=== PATIENT | male | born 1940 | race Caucasian/White ===

== ENCOUNTER → 2016-12-13 | Outpatient (CLI) | payer MEDICARE | END | disposition home or self-care (01) | LOC: PCVCCLINIC 15:30 | PROVIDERS: ATTEND Internal Medicine Cardiovascular Disease | DX: I35.0 Nonrheumatic aortic (valve) stenosis (principal); I10 Essential (primary) hypertension; E78.00 Pure hypercholesterolemia, unspecified; I25.10 Atherosclerotic heart disease of native coronary artery without angina pectoris; E11.9 Type 2 diabetes mellitus without complications; I44.7 Left bundle-branch block, unspecified; I44.0 Atrioventricular block, first degree; K21.9 Gastro-esophageal reflux disease without esophagitis; Z95.4 Presence of other heart-valve replacement; Z95.1 Presence of aortocoronary bypass graft; Z79.84 Long term (current) use of oral hypoglycemic drugs; Z87.891 Personal history of nicotine dependence; Z88.8 Allergy status to other drugs, medicaments and biological substances | CPT/HCPCS: 93005; G0463 ==

== ENCOUNTER → 2017-04-23 | Outpatient (CLI) | payer MEDICARE ==
--- NOTE | 2017-04-23 16:40 | PCVCIMAG ---
APPROVED REPORT Study performed: 04/23/2017 13:29:20 EXAM: Comprehensive 2D, Doppler, and color-flow Echocardiogram Patient Location: Echo lab Status: routine BSA: 1.78 HR: 56 bpmBP: 142/72 mmHg Rhythm: NSR Risk Factors: Cardiac Risk Factors: HTN Indications Aortic Valve Disease Cardiomyopathy Hypertension/HDD #25 [facility] AVR. 2D Dimensions IVSd: 10.28 (7-11mm)LVOT Diam: 25.19 (18-24mm) LVDd: 54.13 mm PWd: 10.49 (7-11mm)Ascending Ao: 29.16 (22-36mm) LVDs: 37.68 (25-40mm) Left Atrium: 32.99 (27-40mm) Aortic Root: 26.26 mm LV Single Plane 4CH: 49.60 % LV Single Plane 2CH: 41.32 %Song's LVEF: 45.46 % Biplane EF: 45.8 % Volumes Left Atrial Volume (Systole) Single Plane 4CH: 37.54 mLSingle Plane 2CH: 37.79 mL Biplane LA Volume: 40.00 mLLA ESV Index: 22.00 mL/m2 Aortic Valve AoV Peak Kevin.: 1.81 m/s AO Peak Gr.: 14.32 mmHgLVOT Max P.39 mmHg AO Mean Gr.: 6.05 mmHg AO V2 Mean: 1.15 m/sLVOT Max V: 0.92 m/s AO V2 VTI: 36.28 cm BLAIR Vmax: 2.54 cm2 AI Vmax: 4.24 m/s AI [place]: 3.13 m/s2 AI PHT: 392.86 ms Mitral Valve E/A Ratio: 1.2 MV Decel. Time: 145.77 ms MV E Max Kevin.: 0.99 m/s MV A Kevin.: 0.82 m/s IVRT: 128.03 ms TDI E/Lateral E': 5.50E/Medial E': 24.75 Medial E' Kevin.: 0.04 m/s Lateral E' Kevin.: 0.18 m/s Pulmonary Valve PV Peak Kevin.: 1.07 m/sPV Peak Gr.: 4.56 mmHg Pulmonary Vein P Vein S: 0.48 m/sP Vein A: 0.18 m/s P Vein D: 0.43 m/sP Vein A Dur.: 76.1 msec P Vein S/D Ratio: 1.12 Tricuspid Valve TR Peak Kevin.: 2.75 m/s TR Peak Gr.: 30.21 mmHg TV Vmax: 0.78 m/sPA Pressure: 37.00 mmHg Left Ventricle The left ventricle is normal size. Global mild hypokinesis. There is normal left ventricular wall thickness. The left ventricular ejection fraction is within the normal range. LVEF is 45-50%. The left ventricular diastolic function is normal. Right Ventricle The right ventricle is normal size. The right ventricular systolic function is normal. Atria The left atrium size is normal. The right atrium size is normal. Aortic Valve #25 [facility] AVR. Peak gradient is 13mmhg. Mean gradient is 6mmhg. BLAIR is 2.5cm2. Mild aortic regurgitation. There is no aortic valvular stenosis. Mitral Valve The mitral valve is normal in structure. Trace mitral regurgitation. No evidence of mitral valve stenosis. Tricuspid Valve The tricuspid valve is normal in structure. Trace tricuspid regurgitation. Pulmonary artery pressure is 37mmhg. Pulmonic Valve The pulmonary valve is normal in structure. There is no pulmonic valvular regurgitation. Great Vessels The aortic root is normal in size. The ascending aorta is normal in size. IVC is normal in size and collapses with >50% inspiration Pericardium There is no pericardial effusion. There is no pleural effusion. <Conclusion> The left ventricle is normal size. LVEF is 45-50%. The left ventricular diastolic function is normal. The right ventricle is normal size. The left atrium size is normal. #25 [facility] AVR. Peak gradient is 13mmhg. Mean gradient is 6mmhg. BLAIR is 2.5cm2. There is no aortic valvular stenosis. Trace mitral regurgitation. Trace tricuspid regurgitation. Pulmonary artery pressure is 37mmhg. There is no pericardial effusion.
== END | disposition home or self-care (01) ==
LOC: PCVCIMAG 13:21
PROVIDERS: ATTEND Internal Medicine Cardiovascular Disease
DX: I25.10 Atherosclerotic heart disease of native coronary artery without angina pectoris (principal); I10 Essential (primary) hypertension; I42.9 Cardiomyopathy, unspecified; E78.5 Hyperlipidemia, unspecified; E11.9 Type 2 diabetes mellitus without complications; E78.00 Pure hypercholesterolemia, unspecified; I35.0 Nonrheumatic aortic (valve) stenosis; R94.31 Abnormal electrocardiogram [ECG] [EKG]; I44.7 Left bundle-branch block, unspecified; Z95.2 Presence of prosthetic heart valve; Z87.891 Personal history of nicotine dependence; Z79.899 Other long term (current) drug therapy
CPT/HCPCS: 36415; 80061; 85610; 93005; 93306; G0463

== ENCOUNTER → 2017-12-18 | Outpatient (CLI) | payer MEDICARE | END | disposition home or self-care (01) | LOC: PCVCCLINIC 12:53 | DX: I25.10 Atherosclerotic heart disease of native coronary artery without angina pectoris (principal); I10 Essential (primary) hypertension; E11.9 Type 2 diabetes mellitus without complications; I35.0 Nonrheumatic aortic (valve) stenosis; E78.00 Pure hypercholesterolemia, unspecified; D68.59 Other primary thrombophilia; Z95.2 Presence of prosthetic heart valve | CPT/HCPCS: 93005; G0463 ==

== ENCOUNTER → 2018-03-27 | Outpatient (CLI) | payer MEDICARE ==
[~2018-03-27] MED LIST: REGADENOSON 0.4 MG/5 ML DISP.SYRIN. IV ONE
--- NOTE | 2018-03-27 12:38 | PCVCIMAG ---
APPROVED REPORT Study performed: 03/27/2018 08:46:12 EXAM: Comprehensive 2D, Doppler, and color-flow Echocardiogram Patient Location: Echo lab Status: routine BSA: 1.82 HR: 72 bpmBP: 150/80 mmHg Rhythm: NSR Other Information Study Quality: Good Risk Factors: Cardiac Risk Factors: HTN, Hyperlipidemia, DM Indications Aortic Valve Disease Hypertension/HDD #25 [facility] [place] AVR 2D Dimensions IVSd: 10.99 (7-11mm)LVOT Diam: 26.57 (18-24mm) LVDd: 57.91 mm PWd: 10.01 (7-11mm)Ascending Ao: 36.10 (22-36mm) LVDs: 53.42 (25-40mm) Left Atrium: 43.48 (27-40mm) Aortic Root: 31.05 mm LV Single Plane 4CH: 39.31 % LV Single Plane 2CH: 39.06 % Biplane EF: 39.0 % Volumes Left Atrial Volume (Systole) Single Plane 4CH: 71.45 mLSingle Plane 2CH: 73.11 mL LA ESV Index: 41.00 mL/m2 Aortic Valve AoV Peak Kevin.: 1.84 m/s AO Peak Gr.: 13.52 mmHgLVOT Max P.46 mmHg AO Mean Gr.: 6.35 mmHgLVOT Mean P.47 mmHg AO V2 Mean: 1.17 m/sLVOT Max V: 1.06 m/s AO V2 VTI: 36.03 cmLVOT Mean V: 0.73 m/s BLAIR (VTI): 3.48 [id number] V1 VTI: 22.61 cm BLAIR Vmax: 3.18 cm2 SV (LVOT): 125.30 mL Mitral Valve IVRT: 79.58 ms TDI Medial E' Kevin.: 0.07 m/s Lateral E' Kevin.: 0.04 m/s Pulmonary Valve PV Peak Gr.: 3.27 mmHg Tricuspid Valve TR Peak Kevin.: 1.58 m/s TR Peak Gr.: 10.01 mmHg Left Ventricle The left ventricle is normal size. There is normal LV segmental wall motion. There is normal left ventricular wall thickness. Left ventricular systolic function is mildly decreased. LVEF is 45-50%. The left ventricular diastolic function is normal. Right Ventricle The right ventricle is normal size. The right ventricular systolic function is normal. Atria Left atrium is mildly dilated. The right atrium size is normal. Aortic Valve #23 [facility] [place] Aortic Valve Replacement Trace to mild aortic regurgitation. Mitral Valve The mitral valve is normal in structure. Mild mitral regurgitation. No evidence of mitral valve stenosis. Tricuspid Valve The tricuspid valve is normal in structure. There is no tricuspid valve regurgitation noted. Pulmonic Valve The pulmonary valve is normal in structure. Trace pulmonic regurgitation. Great Vessels The aortic root is normal in size. IVC is normal in size and collapses >50% with inspiration. Pericardium There is no pericardial effusion. <Conclusion> The left ventricle is normal size. Left ventricular systolic function is mildly decreased. LVEF is 45-50%. The right ventricle is normal size. Left atrium is mildly dilated. #23 [facility] Aortic Valve Replacement Trace to mild aortic regurgitation. There is no tricuspid valve regurgitation noted. The aortic root is normal in size. There is no pericardial effusion.
--- NOTE | 2018-03-28 17:40 | PCVCIMAG ---
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 Time of rest injection: 919 Date: 03/27/2018 Administration Route: IV Administration Site: Right AC Pharmacologic Stress Pharmacologic stress test was performed by injecting Regadenoson 0.4 mg IV push over 10-15 seconds immediately followed by the intravenous injection of 34.2 mCi of Tc-99m Sestamibi. Time of stress injection: 1044 Date: 03/27/2018 Administration Route: IV Administration Site: Right AC Gated Stress SPECT was performed 45 minutes after stress injection. The images were gated to evaluate regional wall motion and calculate left ventricular ejection fraction. Comments Prior nuc 2015: Non-Ischemic Stress Test Details Stress Test: Pharmacologic stress testing performed using 0.4 mg of regadenoson per 5 mL given IV over 10 seconds. HRMax Heart Rate (APMHR): 144 bpm Resting HR: 55 bpmTarget HR (85% APMHR): 122 bpm Max HR Achieved: 100 bpm % of APMHR: 69 Recovery HR: 84 bpm BP Resting BP: 187/82 mmHg Recovery BP: 174/83 mmHg ECG Resting ECG: Sinus Bradycardia, IVCD, Twave abnormality Stress ECG: Sinus Rhythm, IVCD, Twave abnormality Arrhythmia: PVCs Recovery ECG: Sinus Rhythm, IVCD, Twave abnormality Clinical Reason for Termination: Completed protocol Stress Symptoms: Lightheaded Symptoms resolved during recovery. Stress ECG Conclusion ECG: Non-ischemic Study Quality Study: Good Study Data Post stress, the left ventricular ejection was 34%.. SSS: 8 SRS: 6 SDS: 2 TID = 1.14. Perfusion No evidence of stress induced ischemia or prior myocardial infarction. Wall Motion Moderate chamber dilatation. Moderately decreased left ventricular systolic function. Nuclear Conclusion No evidence of stress induced ischemia or prior myocardial infarction. Post stress, the left ventricular ejection was 34%. No change since prior study dated January 2016. Interpreted by: Jan Martinez MD Electronically Approved: 03/27/2018 17:40:00 <Conclusion> ECG: Non-ischemic
== END | disposition home or self-care (01) ==
LOC: PCVCIMAG 08:42
PROVIDERS: ATTEND Internal Medicine Cardiovascular Disease
DX: I25.10 Atherosclerotic heart disease of native coronary artery without angina pectoris (principal); E11.9 Type 2 diabetes mellitus without complications; I10 Essential (primary) hypertension; E78.5 Hyperlipidemia, unspecified; Z87.891 Personal history of nicotine dependence
CPT/HCPCS: 78452; 93017; 93306; A9500; J2785

== ENCOUNTER → 2018-09-25 | Outpatient (CLI) | payer MEDICARE | END | disposition home or self-care (01) | LOC: PCVCCLINIC 13:50 | PROVIDERS: ATTEND Internal Medicine Cardiovascular Disease | DX: I25.10 Atherosclerotic heart disease of native coronary artery without angina pectoris (principal); I42.9 Cardiomyopathy, unspecified; R94.31 Abnormal electrocardiogram [ECG] [EKG]; I35.0 Nonrheumatic aortic (valve) stenosis; I10 Essential (primary) hypertension; E78.00 Pure hypercholesterolemia, unspecified; D68.59 Other primary thrombophilia; E11.9 Type 2 diabetes mellitus without complications; K21.9 Gastro-esophageal reflux disease without esophagitis; Z87.891 Personal history of nicotine dependence; Z79.899 Other long term (current) drug therapy; Z79.84 Long term (current) use of oral hypoglycemic drugs; Z88.8 Allergy status to other drugs, medicaments and biological substances | CPT/HCPCS: 93005; G0463 ==

== ENCOUNTER → 2019-05-08 | Outpatient (CLI) | payer MEDICARE | END | disposition home or self-care (01) | LOC: PCVCCLINIC 10:20 | PROVIDERS: ATTEND Internal Medicine Cardiovascular Disease | DX: I25.10 Atherosclerotic heart disease of native coronary artery without angina pectoris (principal); I42.9 Cardiomyopathy, unspecified; E78.00 Pure hypercholesterolemia, unspecified; E11.9 Type 2 diabetes mellitus without complications; I44.7 Left bundle-branch block, unspecified; I11.0 Hypertensive heart disease with heart failure; I50.23 Acute on chronic systolic (congestive) heart failure; D68.59 Other primary thrombophilia; I34.0 Nonrheumatic mitral (valve) insufficiency; K21.9 Gastro-esophageal reflux disease without esophagitis; Z79.899 Other long term (current) drug therapy; Z79.01 Long term (current) use of anticoagulants; Z87.891 Personal history of nicotine dependence; Z90.49 Acquired absence of other specified parts of digestive tract; Z95.1 Presence of aortocoronary bypass graft; Z95.2 Presence of prosthetic heart valve | CPT/HCPCS: 36415; 80061; 85610; 93005; G0463 ==